=== PATIENT | male | born 1950 | race Caucasian/White ===

== ENCOUNTER 2022-11-09 15:32 | Emergency (ER) | payer MEDICARE, OTHER ==
--- NOTE | 2022-11-09 15:47 | ED Upper Extremity ---
General Chief Complaint: Trauma-Non Activation Stated Complaint: FALL Nursing Triage Note: PT FALL FROM STANDING. C/O NECK PAIN AND L ELBOW PAIN. ABRASION NOTED TO L FOREHEAD. Source: patient Exam Limitations: no limitations History of Present Illness Date Seen by Provider: November 09, 2022 Time Seen by Provider: 15:44 Initial Comments Patient is 72-year-old male with a history of intellectual disability presents to ED with power of deputy attorney general for evaluation after a fall at a gas station. Patient fell around 2:30 PM. Patient missed a curb fell landing on his left e lbow and left forehead. No loss of consciousness. Patient is not on blood thinners. This was not witnessed by his family member but was witnessed by 2 other bystanders. Patient reports mild headache. Abrasion to the left forehead. Swelling to the left elbow with limited range of motion. Patient was placed in a sling. Patient Was brought to ED by EMS. Denies having mid to l ower back pain, chest pain, cough, shortness of breath, abdominal pain, hip pain or lower extremity pain. Denies taking anything for pain. Not up-to-date on his tetanus. Difficulty obtaining history from patient secondary to his intellectual disability however he was able to tell me if he was having any localized pain. According to family patient is at his normal baseline. Denies increasing head pain, visual changes. Patient was placed in a c-collar Allergies and Home Medications Allergies Coded Allergies: No Known Drug Allergies (Unverified , 11/09/22) Patient Home Medication List Home Medication List Reviewed: Yes Review of Systems Constitutional: No chills, No diaphoresis, No fever, No malaise EENTM: No hearing loss, No blurred vision, No double vision, No hoarseness, No mouth pain, No mouth swelling Respiratory: No cough Cardiovascular: No palpitations Gastrointestinal: No abdominal pain, No diarrhea, No nausea, No vomiting Genitourinary: No decreased output Musculoskeletal: No back pain; joint pain, joint swelling, muscle pain Skin: change in color; No change in hair/nails All Other Systems Reviewed Negative Unless Noted: Yes Past Jvgmmmx-Bzcbsh-Zmesho Hx Patient Social History Tobacco Use?: No Substance use?: No Pt feels they are or have been: No Immunizations Up To Date Influenza Vaccine Up-to-Date: Yes; Up-to-Date Past Medical History Surgery/Hospitalization HX: HTN, MR Physical Exam Vital Signs Vital Signs - First Documented 11/09/22 15:33 Temp 36.5 Pulse 80 Resp 18 B/P (MAP) 199/99 (132) Pulse Ox 95 O2 Delivery Room Air Capillary Refill : Height, Weight, BMI Height: '" Weight: lbs. oz. kg; BMI Method: General Appearance: WD/WN, no apparent distress HEENT: PERRL/EOMI, normal ENT inspection, TMs normal, pharynx normal Neck: other (C-collar in place.) Cardiovascular: regular rate, rhythm, no edema, no gallop, no JVD Respiratory: chest non-tender, lungs clear, normal breath sounds, no respiratory distress, no accessory muscle use Gastrointestinal: normal bowel sounds, non tender, soft, no organomegaly, no pulsatile mass Back: normal inspection, no CVA tenderness, no vertebral tenderness Shoulder: limited ROM (Limited range of motion left shoulder. Passive range of motion limited.), soft tissue tenderness, swelling Elbow/Forearm: Left, limited ROM, pain, soft tissue tenderness, swelling (Swelling to the left posterior elbow. Limited passive range of motion. Crepitus noted) Wrist: Yes non-tender, Yes no evidence of injury (Left wrist), Yes normal ROM Hand: normal inspection, non-tender, no evidence of injury, Left Neurologic/Psychiatric: no motor/sensory deficits, alert, normal mood/affect Procedures/Interventions Splinting and Joint Reduction : Pre-Proc Neuro Vasc Exam: normal Post-Proc Neuro Vasc Exam: normal Progress Ortho-Glass long-arm posterior splint left arm. Neurovascularly pre and post splint. No evidence of compartment syndrome Pre-Procedure NV Exam: Yes Progress/Results/Core Measures Results/Orders Lab Results Laboratory Tests Test 11/09/22 15:40 Range/Units White Blood Count 8.8 4.3-11.0 10^3/uL Red Blood Count 4.81 4.30-5.52 10^6/uL Hemoglobin 14.8 13.3-17.7 g/dL Hematocrit 44 40-54 % Mean Corpuscular Volume 91 80-99 fL Mean Corpuscular Hemoglobin 31 25-34 pg Mean Corpuscular Hemoglobin Concent 34 32-36 g/dL Red Cell Distribution Width 13.5 10.0-14.5 % Platelet Count 135 130-400 10^3/uL Mean Platelet Volume 12.5 H 9.0-12.2 fL Immature Granulocyte % (Auto) 0 % Neutrophils (%) (Auto) 72 42-75 % Lymphocytes (%) (Auto) 17 12-44 % Monocytes (%) (Auto) 8 0-12 % Eosinophils (%) (Auto) 2 0-10 % Basophils (%) (Auto) 1 0-10 % Neutrophils # (Auto) 6.3 1.8-7.8 10^3/uL Lymphocytes # (Auto) 1.5 1.0-4.0 10^3/uL Monocytes # (Auto) 0.7 0.0-1.0 10^3/uL Eosinophils # (Auto) 0.2 0.0-0.3 10^3/uL Basophils # (Auto) 0.1 0.0-0.1 10^3/uL Immature Granulocyte # (Auto) 0.0 0.0-0.1 10^3/uL Percent Immature Platelet Fraction 11.2 H 0.0-7.6 % Prothrombin Time 14.1 12.2-14.7 SEC INR Comment 1.1 0.8-1.4 Activated Partial Thromboplast Time 31 24-35 SEC Sodium Level 139 135-145 MMOL/L Potassium Level 4.0 3.6-5.0 MMOL/L Chloride Level 108 H 98-107 MMOL/L Carbon Dioxide Level 21 21-32 MMOL/L Anion Gap 10 5-14 MMOL/L Blood Urea Nitrogen 18 7-18 MG/DL Creatinine 1.19 0.60-1.30 MG/DL Estimat Glomerular Filtration Rate 64 BUN/Creatinine Ratio 15 Glucose Level 145 H 70-105 MG/DL Calcium Level 9.1 8.5-10.1 MG/DL Corrected Calcium 9.0 8.5-10.1 MG/DL Total Bilirubin 0.8 0.1-1.0 MG/DL Aspartate Amino Transf (AST/SGOT) 21 5-34 U/L Alanine Aminotransferase (ALT/SGPT) 19 0-55 U/L Alkaline Phosphatase 76 40-136 U/L Total Protein 6.8 6.4-8.2 GM/DL Albumin 4.1 3.2-4.5 GM/DL My Orders Orders - ALDEN MCNALLY Ct Head/Face/Cervical Wo (11/09/22 15:42) Shoulder, Left, 3 Views (11/09/22 15:42) Elbow, Left, 3 Views (11/09/22 15:42) Labetalol Injection (Normodyne Injection (11/09/22 16:30) Cbc With Automated Diff (11/09/22 16:21) Comprehensive Metabolic Panel (11/09/22 16:21) Partial Thromboplastin Time (11/09/22 16:21) Protime With Inr (11/09/22 16:21) Labetalol Injection (Normodyne Injection (11/09/22 17:00) Ns (Ivpb) (Sodium C... W/Nicardipine Iv (11/09/22 17:00) Morphine Injection (Morphine Injection (11/09/22 17:15) Nicardipine Iv (Pyxis Drip Kit (Cardene (11/09/22 17:11) Ns (Ivpb) (Sodium Chloride 0.9%) (11/09/22 17:12) Dipht,Pertuss(Acell),Tet Adult (Boostrix (11/09/22 17:30) Medications Given in ED Vital Signs/I&O Critical Care Note Critical Care Start Time: 16:00 Stop Time: 16:40 Total Time (minutes) 40 min Departure Communication (PCP) Patient is a 72-year-old male with a history of an intellectual disability presents to ED with power of deputy attorney general his [id number] for evaluation after a fall. Mechanical fall around 2:30 PM. Hit the left side of his head resulting in abrasion and left elbow. Swelling noted to left elbow with crepitus. Neurovascular intact. Not on any type of anticoagulants. Denies loss of consciousness. Patient appears to be close to his baseline accorind to the family. C-collar was placed by EMS. CT scan face, head and cervical neck was ordered. X-ray left shoulder and left elbow. No wrist tenderness. Patient without any thoracic or lumbar midline tenderness. Denies chest pain, cough, shortness of breath or abdominal pain. CT scan of the head shows small bilateral cerebral convexity subdural hematomas with blood along the right tentorium and a small amount of subarachnoid blood in the right frontal region. No cervical spine fracture. No fracture in the face. C-collar removed cleared at 1722. CBC, CMP, coags unremarkable. Patient was hypertensive near 183/96. History of hypertension currently on metoprolol, amlodipine, lisinopril. No known cardiac history. X-ray of the left shoulder was negative. X-ray of the left elbow Complex displaced fractures demonstrated of the proximal radius and ulna with marked displacement of the radial head. There is no corresponding dis jodie humeral fracture evident. No evidence of open fracture. patient was placed in a long-arm posterior splint. Neurovascularly pre and post splint. Patient initially was given labetalol 20 mg with slight improvement of blood pressure. Received a second dose of 20 mg labetalol without much improvement. Patient started on a Cardene drip manage blood pressure below 160 systolic 90 diastolic. Patient was given a tetanus shot. Contacted Dr. Zuniga neurosurgeon at [facility] who recommended transfer ED to ED. Patient was discussed with Dr. Chan ER physician who accepts patient. Patient appears to be moving all extremities. Difficulty obtaining history secondary to his intellectual disability. Alert and orient x3. GCS 15. Able to have a communication but hard to understand. According to power of deputy attorney general his [id number] patient is at his normal baseline. Total critical care time 40 minutes secondary to subdural hematoma, subarachnoid bleed requiring emergent blood pressure management with Cardene drip. Impression Primary Impression: Subdural hematoma Additional Impression: Elbow fracture Disposition: XF SHT-TRM HOSP Condition: Stable Transfer Transfer Reason: Exceeds level of care Time Spoke to Accepting Phy: 17:07 Transfer Progress Notes accepted Dr. Urbina ED Physician Transfer Time: 17:08 Transfer Facility: [facility] Method of Transfer: Air Departure-Patient Inst. Referrals: NO,LOCAL PHYSICIAN (PCP/Family) Primary Care Physician ALDEN MCNALLY November 09, 2022 15:47
--- NOTE | 2022-11-09 16:20 | Diagnostic Imaging Report ---
INDICATION: Fall. Shoulder pain. FINDINGS: There is no finding of glenohumeral joint dislocation. AC joint alignment is normal. There are mild AC joint spurs and mild glenohumeral joint arthritic changes are also present. There is no acute fracture. Morphology of the humeral head is normal. The visualized left lung is clear without pneumothorax or a rib fracture. IMPRESSION: AC joint and glenohumeral joint arthritic changes without findings of dislocation or acute fracture. Dictated by: Dictated on workstation # [id number]
--- NOTE | 2022-11-09 16:22 | Diagnostic Imaging Report ---
INDICATION: Fall. Elbow pain. FINDINGS: There are complex fractures involving the proximal radius and the ulna with marked displacement of the radial head as well as displacement of the coronoid process of the ulna. There is no distal humeral fracture evident. There is overlying soft tissue edema. There is no soft tissue gas. IMPRESSION: Complex displaced fractures demonstrated of the proximal radius and ulna with marked displacement of the radial head. There is no corresponding distal humeral fracture evident. Dictated by: Dictated on workstation # [id number]
[2022-11-09 16:28] LABS: BASOPHILS # (AUTO) 0.1 10^3/uL (0.0-0.1); BASOPHILS % (AUTO) 1 % (0-10); EOSINOPHILS # (AUTO) 0.2 10^3/uL (0.0-0.3); EOSINOPHILS % (AUTO) 2 % (0-10); HEMATOCRIT 44 % (40-54); HEMOGLOBIN 14.8 g/dL (13.3-17.7); LYMPHOCYTES # (AUTO) 1.5 10^3/uL (1.0-4.0); LYMPHOCYTES % (AUTO) 17 % (12-44); MEAN CORPUSCULAR HEMOGLOBIN 31 pg (25-34); MEAN CORPUSCULAR HGB CONC 34 g/dL (32-36); MEAN CORPUSCULAR VOLUME 91 fL (80-99); MEAN PLATELET VOLUME 12.5 fL (9.0-12.2); MONOCYTES # (AUTO) 0.7 10^3/uL (0.0-1.0); MONOCYTES % (AUTO) 8 % (0-12); NEUTROPHILS # (AUTO) 6.3 10^3/uL (1.8-7.8); NEUTROPHILS % (AUTO) 72 % (42-75); PLATELET COUNT 135 10^3/uL (130-400); WHITE BLOOD COUNT 8.8 10^3/uL (4.3-11.0)
[2022-11-09 16:30] LABS: ALBUMIN 4.1 GM/DL (3.2-4.5)
[2022-11-09] MEDS ORDERED: LABETALOL HCL 20 MG/4 ML VIAL IV ONE ×2 (16:30→17:00)
[2022-11-09 16:31] LABS: CALCIUM 9.1 MG/DL (8.5-10.1); INR 1.1 (0.8-1.4); PROTHROMBIN TIME PATIENT 14.1 SEC (12.2-14.7)
[2022-11-09 16:32] LABS: TOTAL PROTEIN 6.8 GM/DL (6.4-8.2)
[2022-11-09 16:34] LABS: BILIRUBIN,TOTAL 0.8 MG/DL (0.1-1.0)
[2022-11-09 16:36] LABS: CREATININE SERUM 1.19 MG/DL (0.60-1.30)
--- NOTE | 2022-11-09 16:41 | Diagnostic Imaging Report ---
EXAMINATION: CT head, face and CT cervical spine without contrast. TECHNIQUE: Multiple contiguous axial images were obtained through the face, brain and cervical spine without the use of intravenous contrast. Sagittal and coronal reformations through the cervical spine were then performed. All CT scans use one or more of the following dose optimizing techniques: automated exposure control, MA and/or KvP adjustment based on patient size and exam type or iterative reconstruction. HISTORY: Head, face and neck injury. COMPARISON: None available. FINDINGS: There are small bilateral subdural hematomas along both cerebral convexities. There is a small amount of blood along the right tentorium. Small amount of subarachnoid blood is present in the right frontal region. No mass effect or midline shift. The ventricles are normal in size and configuration. Basilar cisterns are patent. There ise no intra-axial or extra-axial fluid collection. The orbits are normal. There is bilateral maxillary sinus mucosal disease. Mastoid air cells are clear. No soft tissue abnormality is seen. No osseus lesion or fracture is seen. No fracture is seen in the face. The nasal bones are normal. Mandible and maxillae are normal. Zygomatic arches are normal. Pterygoid plates are normal. No soft tissue abnormality is seen. The alignment of the cervical spine is normal. Cervical spine vertebral body heights are normal. There is mild height loss of T1 which is age indeterminate. The craniocervical junction is normal. There is moderate degenerative disease in the cervical spine. There is facet arthropathy and degenerative disc disease. There is degeneration of the atlantoaxial interval. No soft tissue abnormality is seen in the neck. Limited views of the superior thorax are normal. IMPRESSION: 1. Small bilateral cerebral convexity subdural hematomas with blood also along the right tentorium and a small amount of subarachnoid blood in the right frontal region. 2. No cervical spine fracture but there is age-indeterminate mild height loss of T1. 3. No fracture in the face. Critical findings called to Dr. Beck by Dr. Lebron on 11/09/2022 at 4:15 PM. Dictated by: Dictated on workstation # [id number]
[2022-11-09] MEDS ORDERED: niCARdipine IV 50 MG in NS (IVPB) 230 ML IV SCH (17:00)
[2022-11-09] MEDS ORDERED: niCARdipine IV PYXIS DRIP KIT = 50 MG X 2 VIALS ONE (17:11)
[2022-11-09] MEDS ORDERED: NS (IVPB) 250 ML ONE (17:12)
[2022-11-09] MEDS ORDERED: morphine INJ 4 MG/ML 1 ML (VIAL/SYRINGE) IVP ONE (17:15)
[2022-11-09] MEDS ORDERED: TETANUS,DIPTH,PERTUSS P/F (BOOSTRIX) 0.5 ML VIAL IM ONE (17:30)
[2022-11-09 17:38] VITALS: BP 164/68
== END 2022-11-09 17:38 | disposition short-term general hospital (02) ==
LOC: ER 15:37
DX: S06.5X0A Traumatic subdural hemorrhage without loss of consciousness, initial encounter (principal); S52.122A Displaced fracture of head of left radius, initial encounter for closed fracture; S52.002A Unspecified fracture of upper end of left ulna, initial encounter for closed fracture; R40.2414 Glasgow coma scale score 13-15, 24 hours or more after hospital admission; F79 Unspecified intellectual disabilities; I10 Essential (primary) hypertension; Z79.899 Other long term (current) drug therapy; Z23 Encounter for immunization; W18.30XA Fall on same level, unspecified, initial encounter; Y92.524 Gas station as the place of occurrence of the external cause
CPT/HCPCS: 29105; 36415; 70450; 70486; 72125; 73030; 73080; 80053; 85025; 85610; 85730; 90715